=== PATIENT | male | born 1955 | race Caucasian/White ===

== ENCOUNTER 2022-06-10 08:21 | Outpatient (CLI) | payer OTHER | END 2022-06-10 08:25 | disposition home or self-care (01) | LOC: RAD 08:21 | DX: K40.90 Unilateral inguinal hernia, without obstruction or gangrene, not specified as recurrent (principal) ==

== ENCOUNTER 2025-03-13 07:49 | Outpatient (CLI) | payer OTHER | END 2025-03-13 07:57 | disposition home or self-care (01) | LOC: MRI 07:49 | PROVIDERS: ATTEND Internal Medicine | DX: M17.12 Unilateral primary osteoarthritis, left knee (principal) | CPT/HCPCS: 73721 ==

== ENCOUNTER 2025-09-02 07:53 | Outpatient (CLI) | payer OTHER | END 2025-09-02 09:24 | disposition home or self-care (01) | LOC: RAD 07:53 | DX: M25.561 Pain in right knee (principal); M25.562 Pain in left knee ==